=== PATIENT | female | born 1955 | race Caucasian/White ===

== ENCOUNTER 2019-12-30 21:44 | Emergency (ER) | payer OTHER ==
[~2019-12-30] VITALS: Ht 170.2 cm; Wt 71.2 kg
[2019-12-30 22:00] VITALS: Ht 170.2 cm; Wt 71.2 kg
[2019-12-30 22:40] LABS: BASOPHIL % 0.2 % (0-2); PLATELET COUNT 145 x10^3mcL (130-400); RED CELL DISTRIBUTION WIDTH 13.7 % (11.5-14.5)
[2019-12-30 23:05] LABS: ALKALINE PHOSPHATASE 88 U/L (46-116); ALT/SGPT 16 U/L (14-59); AST/SGOT 26 U/L (15-37); BILIRUBIN DIRECT 0.63 mg/dL (0.0-0.2); BILIRUBIN TOTAL 1.4 mg/dL (0.20-1.00); CALCIUM 8.1 mg/dL (8.5-10.1); CARBON DIOXIDE 28.4 mmol/L (21-32); CHLORIDE SERUM 97 mmol/L (98-107); CREATININE SERUM 0.9 mg/dL (0.6-1.0); FREE T4 1.36 ng/dL (0.76-1.46); GFR1 > 60 mL/min; GLUCOSE SERUM 197 mg/dL (74-106); LIPASE 59 IU/L (73-393); POTASSIUM SERUM 4.1 mmol/L (3.5-5.1); SODIUM SERUM 130 mmol/L (136-145); TOTAL PROTEIN, SERUM 8.2 g/dL (6.4-8.2)
[2019-12-30 23:06] LABS: ALBUMIN 2.2 g/dL (3.4-5.0)
[2019-12-31 01:10] VITALS: BP 122/58
== END 2019-12-31 01:10 | disposition home or self-care (01) ==
LOC: ED 21:44
PROVIDERS: Student in an Organized Health Care Education/Training Program
DX: S01.111A Laceration without foreign body of right eyelid and periocular area, initial encounter (principal); N39.0 Urinary tract infection, site not specified; R42 Dizziness and giddiness; E87.1 Hypo-osmolality and hyponatremia; W06.XXXA Fall from bed, initial encounter; Y93.89 Activity, other specified; Y92.89 Other specified places as the place of occurrence of the external cause; Y99.8 Other external cause status; E11.9 Type 2 diabetes mellitus without complications
CPT/HCPCS: 82962; 84439; Q0092; U0003-CS